=== PATIENT | male | born 1960 | race Caucasian/White ===

== ENCOUNTER 2016-11-14 23:52 | Emergency (ER) | payer BC, OTHER ==
[~2016-11-14] VITALS: Ht 182.9 cm; Wt 125.0 kg
[~2016-11-14 23:52] MED LIST: DIAZ5 PO; MECL25CH PO; PROT40TA PO
[2016-11-14 23:53] VITALS: BP 144/93; PULSE 86; RESP 18; TEMP 98.4; O2SAT 100
[2016-11-15] MEDS ORDERED: PROT40TA PO (00:10)
--- NOTE | 2016-11-15 00:36 | PD ---
HPI Chief Complaint: Fall Time Seen by Provider: 00:28 Travel History International Travel<30 days: No Contact w/Intl Traveler<30days: No Traveled to known affect area: No History of Present Illness HPI 56-year-old male presents for evaluation after mechanical fall. At 11 PM this evening the patient was at work, standing on a 4 foot metal platform when he fell off a platform and landed on the ground. No head trauma loss of consciousness. He landed on his left side and he now has pain to the left side of his rib cage along with bruising. Pain is worse with inspiration. Pain is an aching pain. He also has a linear abrasion to the right upper buttocks which is mildly tender as well. He denies any abdominal pain, nausea or vomiting, neck or back pain, injury to the extremities. His last tetanus vaccination is unknown. No other complaints. PFSH Past Medical History Medical History: Denies Significant Hx Diminished Hearing: No Tetanus Vaccination: > 5 Years Influenza Vaccination: No Past Surgical History Oral Surgery: Yes (WISDOM TEETH REMOVED) Other Surgery: Yes (SINUS, FACIAL, LEFT HIP SX - PLATES, SCREWS) Social History Alcohol Use: No Tobacco Use: No Substance Use: No Allergies-Medications (Allergen,Severity, Reaction): Coded Allergies: Penicillin (Verified Allergy, Severe, 11/15/16) Reported Meds & Prescriptions Reported Meds & Active Scripts Active Ibuprofen 800 Mg Tab 800 Mg PO Q6HR PRN Percocet (Oxycodone-Acetaminophen) 5-325 mg Tab 1 Tab PO Q6H PRN Reported Protonix (Pantoprazole Sodium) 40 Mg Tab 40 Mg PO DAILY Review of Systems Except as stated in HPI: all other systems reviewed are Neg Physical Exam Narrative GENERAL: Well-developed well-nourished male in no acute distress SKIN: Warm and dry. Superficial linear abrasion noted to the right buttocks. There is a large area of ecchymosis and abrasion to the posterior left rib cage. HEAD: Atraumatic. Normocephalic. EYES: Pupils equal and round. No scleral icterus. No injection or drainage. ENT: No nasal bleeding or discharge. Mucous membranes pink and moist. NECK: Trachea midline. No JVD. CARDIOVASCULAR: Regular rate and rhythm. No murmur appreciated. RESPIRATORY: No accessory muscle use. Clear to auscultation. Breath sounds equal bilaterally. GASTROINTESTINAL: Abdomen soft, non-tender, nondistended. Hepatic and splenic margins not palpable. MUSCULOSKELETAL: No obvious deformities. Skin as noted above. There is tenderness to palpation to the left side ribs. There is no tenderness to palpation along the cervical thoracic or lumbar midline spine. NEUROLOGICAL: Awake and alert. No obvious cranial nerve deficits. Motor grossly within normal limits. Normal speech. Data Data Last Documented VS Vital Signs Date Time Temp Pulse Resp B/P Pulse Ox O2 Delivery O2 Flow Rate FiO2 11/14/16 23:53 98.4 86 18 144/93 100 Room Air Orders Ribs, Uni (W/Exp Cxr-Min 3vw) (11/15/16 ) Tetanus/Diphtheria Tox Adult (Tetanus/Di (11/15/16 00:45) Acetamin-Hydrocod 325-5 Mg ([place] 5-325 (11/15/16 00:45) Ondansetron Odt (Zofran Odt) (11/15/16 00:45) Resp Incentive Spirometry (11/15/16 ) MDM Medical Decision Making Medical Screen Exam Complete: Yes Emergency Medical Condition: Yes Medical Record Reviewed: Yes Differential Diagnosis Rib contusion, retroperitoneal abscess, rib fracture, pneumothorax, hemothorax Narrative Course 56-year-old male with left posterior rib cage after fall. On examination he has ecchymosis and abrasions. He has no CVA tenderness. He has no tenderness to palpation along his spine. His lungs are clear to auscultation bilaterally. His abdomen is soft and nontender. Rib x-ray was performed and it is negative. Tetanus status was updated. He was given Pain medication which seems to be helping. Plan is to discharge him with pain medication as well as an incentive spirometer. Discussed signs and symptoms weren't returning to the emergency room. He is stable for discharge. Diagnosis Primary Impression: Rib contusion Qualified Code: S20.212A - Rib contusion, left, initial encounter Additional Impression: Abrasions of multiple sites Additional Instructions: Ice pack to the affected area several times a day 15-20 minutes at a time. Keep the wounds clean with soap and water. Take the pain medication as needed. Do not drive or drink alcohol when taking Percocet. Use the incentive is prominent or 10 times an hour while awake. Avoid strenuous activity. Follow- up with primary care physician in one to 2 weeks. Return for any acutely new or worsening symptoms such as sudden onset shortness of breath, coughing up blood, acute lightheadedness or dizziness, abdominal pain, fevers. Med/Other Pt SpecificInfo: Prescription(s) given Scripts Ibuprofen 800 Mg [id number] Mg PO Q6HR PRN (PAIN) #40 TAB Ref 0 Prov:Evgeny Roberts MD 11/15/16 Oxycodone-Acetaminophen (Percocet)5-325 mg Tab1 Tab PO Q6H PRN (PAIN) #20 TAB Ref 0 Prov:Evgeny Roberts MD 11/15/16 Disposition: 01 DISCHARGE HOME Condition: Stable [place] Nov 15, 2016 00:35
[2016-11-15] MEDS ORDERED: TETANUS/DIPHTHERIA TOXOID ADULT 0.5 ML VIAL IM ONE (00:45)
[2016-11-15] MEDS ORDERED: ACETAMINOPHEN/HYDROcodone 325 MG/5 MG TAB PO ONE (00:45)
[2016-11-15] MEDS ORDERED: ONDANSETRON ODT 4 MG TAB PO ONE (00:45)
--- NOTE | 2016-11-15 01:39 | RADRPT ---
EXAM DATE/TIME: 11/15/2016 01:08 [facility] COMPARISON: No previous studies available for comparison. INDICATIONS : Rib pain. MEDICAL HISTORY : None. SURGICAL HISTORY : None. ENCOUNTER: Initial ACUITY: 1 day PAIN SCORE: 10/10 LOCATION: Left ribs FINDINGS: 3 views of the left ribs were performed. There is no evidence of displaced fracture. No destructive lesions or areas of periosteal thickening are seen. Expiratory view of the chest is negative for pn eumothorax. The mediastinal structures are midline. CONCLUSION: Unremarakble examination of the left ribs and chest. Jadiel Castaneda MD on November 15, 2016 at 1:37 Board Certified Radiologist. This report was verified electronically.
[2016-11-15] MEDS ORDERED: PERC5TAB12 PO (01:56)
[2016-11-15] MEDS ORDERED: IBUP800T23 PO (01:56)
== END 2016-11-15 02:46 | disposition home or self-care (01) ==
LOC: NEPK 23:52
DX: S20.212A Contusion of left front wall of thorax, initial encounter (principal); S30.810A Abrasion of lower back and pelvis, initial encounter; S20.412A Abrasion of left back wall of thorax, initial encounter; Z23 Encounter for immunization; W17.89XA Other fall from one level to another, initial encounter; Y99.0 Civilian activity done for income or pay
CPT/HCPCS: 71101; 90471; 90714